=== PATIENT | male | born 1980 | race Caucasian/White ===

== ENCOUNTER 2019-02-22 10:00 | Outpatient (RCR) | payer BC, OTHER, SELFPAY | END 2019-03-12 09:34 | disposition home or self-care (01) | LOC: PT.CARL 10:00 | PROVIDERS: Visit Provider Nurse Practitioner Family | DX: M54.2 Cervicalgia (principal) | CPT/HCPCS: 97010; 97012; 97014; 97035; 97110; 97140; 97163; 97164; G0283 ==

== ENCOUNTER → 2019-04-04 13:07 | Outpatient (CLI) | payer BC, OTHER, SELFPAY ==
[2019-04-07 22:52] LABS: Testosterone, Total, LC/MS 137.7 ng/dL (264.0-916.0); Testosterone,Free 2.4 pg/mL (8.7-25.1)
== END ==
PROVIDERS: Visit Provider Urology
DX: Z87.718 Personal history of other specified (corrected) congenital malformations of genitourinary system (principal)
CPT/HCPCS: 36415; 84402; 84403

== ENCOUNTER → 2019-05-15 08:29 | Outpatient (CLI) | payer BC, SELFPAY ==
--- NOTE | 2019-05-15 08:32 | MR_ITS ---
PROCEDURE: MR HEAD/BRAIN WO CON CLINICAL INDICATION: confusion FRONTAL HEADACHE, LOW TESTOSTERONE, ELEVATED TSH, DIZZINESS COMPARISON: No exams were available for comparison TECHNIQUE: Routine multiplanar multi echo sequences are performed without gadolinium enhancement. FINDINGS: No midline shift, mass effect, intracranial hemorrhage, or hydrocephalus is evident. The cerebellopontine angles, cerebellum, and brainstem have an unremarkable appearance. There are a few nonspecific T2 white matter hyperintensities in the left gonzalez radiata and centrum semiovale. These are nonspecific. The hippocampal gyri and temporal horns are unremarkable. The pituitary, optic chiasm, corpus callosum, and craniocervical junction are unremarkable. There is moderate to severe opacification of the ethmoid sinuses. No mastoid effusion. IMPRESSION: No acute intracranial findings There are few nonspecific white matter hyperintensities in the left gonzalez radiata and centrum semiovale. These could be due to small gliotic foci from microvascular changes or migraine headache. Demyelinating process is felt to be less likely due to the imaging characteristics but not completely excluded. Ethmoid sinus inflammatory changes Dictated by: Mynor Moss MD 05/16/2019 08:28 Signed by: <Electronically signed by Mynor Moss MD in OV> 05/16/2019 08:28
== END ==
PROVIDERS: PCP Physician Assistant; Visit Provider Emergency Medicine
DX: R41.0 Disorientation, unspecified (principal); R41.82 Altered mental status, unspecified
CPT/HCPCS: 70551

== ENCOUNTER → 2019-05-29 14:13 | Outpatient (CLI) | payer BC, SELFPAY ==
--- NOTE | 2019-05-29 14:15 | CA_ITS ---
APPROVED REPORT EXAM: Comprehensive 2D, Doppler, and color-flow Echocardiogram Tower Supervisor: Christine Etienne RDCS Ht: 5 ft 9 in Wt: 168lbs BSA: 1.92 BP: 162/92 mmHg Indications: Chest Pain, Murmur, Palpitations, Hypertension/HDD,Smoker 2D Dimensions LVOT 2.00 cm (M/F) 1.5-2.5 M-Mode Dimensions RVDd 1.60 cm (0.9-2.6) LA Diam 3.10 cm (1.9-4.0) LVDd 4.70 cm (3.5-5.7) Ao Diam 2.80 cm (2.0-3.7) LVDs 3.10 cm (3.5-5.7) AV Cusp 1.70 cm (1.5-2.6) IVSd 1.00 cm (0.6-1.1) PWd 1.10 cm (0.6-1.1) EF (Teich) 62.80% FS 34.00% EDV (Teich) 102.00 mL ESV (Teich) 37.90 mL LV Diastology E/A Ratio 1.2 MED E' 13.10 (< 7 cm/sec) E'/MED E' Ratio 6.00 (>14) LAT E' 19.80 (<10 cm/sec) E/LAT E' Ratio 4.00 (>14) Aortic Valve AoV Peak Eliseo. 148.00 (50-130 cm/s) AO Peak GR. 9.00 mmHg Mitral Valve MV E Max Eliseo. 78.50 (40-130 cm/s) MV A Velocity 68.10 (40-130 cm/s) E/A Ratio 1.20 Pulmonary Valve PA Accel Time 194.00 (>120 msec) Tricuspid Valve TR P. Velocity 252.00 cm/s Left Ventricle Left atrium is normal size, left ventricle is normal size, there is no concentric left ventricular hypertrophy, visually estimated ejection fraction 55% with no regional wall motion abnormality. Diastolic parameters are within normal range. Right Ventricle Right atrium and right ventricular normal size and contractility. Aortic Valve Aortic valve is grossly normal, there is no aortic stenosis aortic insufficiency. Mitral Valve Mitral valve is grossly normal, there is no mitral stenosis, there is mild mitral regurgitation. Tricuspid Valve Cuspid valve is grossly normal, there is no tricuspid stenosis, there is mild tricuspid regurgitation. Pulmonic Valve Pulmonic valve is poorly visualized. Great Vessels Aortic root is normal size. Pericardium No Significant pericardial effusion noted. Conclusion 1. Normal left ventricular size, preserved left ventricular systolic function, visually estimated ejection fraction 55% with no regional wall motion abnormality, diastolic parameters are within normal range. 2. Mild mitral and tricuspid regurgitation 3. No significant pericardial effusion noted. Electronically signed by : Anson Nichols, 05/31/2019 17:16:01 GÉNESIS
== END ==
PROVIDERS: PCP Emergency Medicine; Visit Provider Emergency Medicine
DX: R01.1 Cardiac murmur, unspecified (principal)
CPT/HCPCS: 93306

== ENCOUNTER → 2019-05-30 20:12 | Outpatient (CLI) | payer BC, SELFPAY | PROVIDERS: PCP Emergency Medicine; Visit Provider Physician Assistant | DX: G47.30 Sleep apnea, unspecified (principal); R40.0 Somnolence; R41.0 Disorientation, unspecified | CPT/HCPCS: 95810 ==

== ENCOUNTER → 2019-06-07 15:28 | Outpatient (CLI) | payer BC, SELFPAY | PROVIDERS: PCP Emergency Medicine; Visit Provider Emergency Medicine | DX: R41.82 Altered mental status, unspecified (principal); G47.19 Other hypersomnia | CPT/HCPCS: 93225; 93226 ==

== ENCOUNTER → 2019-06-11 07:47 | Outpatient (CLI) | payer BC, SELFPAY ==
--- NOTE | 2019-06-11 | CA_ITS ---
APPROVED REPORT Exam: Exercise Treadmill Technologist: Alba Elizabeth, Ht: 5 ft 9 in Wt: 170 lbs BSA: 1.93 m2 HR: 89 bpm BP: 141/76 mmHg Indications: Chest pain Medical History Medications: None,,,,, Stress Test Details Test: Keny HR Resting HR: 92 bpm Max Heart Rate (APMHR): 184 bpm Max HR Achieved: 180 bpm Target HR (85% APMHR): 156 bpm % of APMHR: 97 Recovery HR: 107 bpm BP Resting BP: 141/76 mmHg Max BP: 204/85 mmHg Recovery BP: 142.0/83.0 mmHg ECG Clinical Exercise duration: 11:02 min Highest Stage Achieved: Exercise capacity: 12.8 METs Stress ECG Conclusion Resting ECG: Normal sinus rhythm, ST-T abnormality in leads III and aVF Patient exercised 11:02 on Keny Protocol Symptoms: No chest pain Arrhythmias/Ectopy: Rare PAC ST-T Changes: Allowing for motion artifact, the ST response to exercise appears to be within normal range. In late recovery, there is mild exaggeration of baseline ST-T abnormalities in leads III and aVF. Conclusion: Normal exercise treadmill stress test. Test Summary REST . . . . . . . Sitting REST . . . . . . . Standing REST 04:55 0.0 0.0 92 . 141/ 76 . . Stage 1 01:00 10.0 1.7 112 . . . . Stage 1 02:00 10.0 1.7 109 . . . . Stage 1 03:00 10.0 1.7 115 . 162/ 80 . . Stage 2 01:00 12.0 2.5 122 . . . . Stage 2 02:00 12.0 2.5 125 . . . . Stage 2 03:00 12.0 2.5 130 . 166/ 75 . . Stage 3 01:00 14.0 3.4 145 . . . . Stage 3 02:00 14.0 3.4 147 . . . . Stage 3 03:00 14.0 3.4 154 . 186/ 72 . . Stage 4 01:00 16.0 4.2 171 . . . . Stage 4 . . . . . . . Shortness of Breath Stage 4 02:00 16.0 4.2 180 . . . . Stage 4 02:02 16.0 4.2 180 . . . Stop exercise at 11:02 RECOVERY 01:00 0.0 0.0 144 . . . . RECOVERY 02:00 0.0 0.0 119 . 204/ 85 . . RECOVERY 03:00 0.0 0.0 108 . 187/ 88 . . RECOVERY 04:00 0.0 0.0 108 . 158/ 81 . . RECOVERY 05:00 0.0 0.0 102 . 142/ 83 . . RECOVERY 05:26 0.0 0.0 108 . 142/ 83 . . Electronically signed by : Anson Nichols, 06/11/2019 20:25:04
== END ==
PROVIDERS: PCP Emergency Medicine; Visit Provider Urology
DX: R07.9 Chest pain, unspecified (principal); R07.89 Other chest pain; R06.09 Other forms of dyspnea; D50.9 Iron deficiency anemia, unspecified; F17.200 Nicotine dependence, unspecified, uncomplicated
CPT/HCPCS: 93017

== ENCOUNTER → 2019-06-20 12:16 | Outpatient (CLI) | payer BC, SELFPAY ==
[2019-06-25 07:02] LABS: Testosterone, Total, LC/MS 182.1 ng/dL (264.0-916.0); Testosterone,Free 2.7 pg/mL (8.7-25.1)
== END ==
PROVIDERS: Visit Provider Urology
DX: E29.1 Testicular hypofunction (principal)
CPT/HCPCS: 36415; 84402; 84403

== ENCOUNTER → 2019-06-26 13:28 | Outpatient (CLI) | payer BC, SELFPAY ==
[2019-06-26 14:53] LABS: Basophils # 0.1 K/mm3 (0-0.2); Basophils % 0.8 % (0.1-2.0); Eosinophils # 0.3 K/mm3 (0.0-0.4); Eosinophils % 5.6 % (0.1-12.0); Hematocrit 45.6 % (42.0-52.0); Hemoglobin 13.7 g/dL (14.1-18.0); Lymphocytes # 1.9 K/mm3 (0.7-4.5); Lymphocytes % 30.9 % (10-50); Mean Corpuscular HGB Conc 30.1 g/dL (31.8-35.4); Mean Corpuscular Hemoglobin 28.4 pg (27.0-31.2); Mean Corpuscular Volume 94.4 fl (80-94); Mean Platelet Volume 8.8 fl (7.4-10.4); Monocytes # 0.4 K/mm3 (0.1-1.0); Monocytes % 5.7 % (1.7-9.3); Neutrophils # 3.5 K/mm3 (1.8-7.8); Platelet Count 294 K/mm3 (142-424); Red Blood Count 4.83 M/mm3 (4.60-6.20); Red Cell Distribution Width 13.7 % (11.5-17.5); White Blood Count 6.1 K/mm3 (4.8-10.8)
[2019-06-26 16:52] LABS: Alanine Aminotransferase 21 U/L (12-78); Albumin Level 4.2 gm/dL (3.4-5.0); Albumin/Globulin Ratio 1.5 (1.1-1.8); Alkaline Phosphatase 67 U/L (46-116); Anion Gap 14.3 mEq/L (5-15); Aspartate Amino Transferase 24 U/L (15-37); Bilirubin,Total 0.3 mg/dL (0.2-1.0); Blood Urea Nitrogen 18 mg/dL (7-18); Calcium 8.7 mg/dL (8.5-10.1); Carbon Dioxide 28 mmol/L (21.0-32.0); Chloride 104 mmol/L (98-107); Cholesterol 144 mg/dL (140-200); Creatinine,Serum 1.02 mg/dL (0.70-1.30); Estimated Glomerular Filt Rate 83 ml/min (>60); GFR (African American) 100 ML/MIN (>60); Globulin 2.8 gm/dl (1.3-3.2); Glucose 105 mg/dL (74-106); HDL Cholesterol 36 mg/dL (27-67); LDL Cholesterol 89 mg/dL (0-130); Potassium 4.3 mmoL/L (3.5-5.1); Sodium 142 mmol/L (136-145); T4 (Thyroxine) 8.4 ug/dl (4.7-13.3); Thyroid Stimulating Hormone 1.69 uIU/ml (0.358-3.740); Triglycerides 95 mg/dL (30-200); VLDL Cholesterol 19 mg/dL (0-40)
[2019-06-28 09:15] LABS: Iron 57 ug/dL (38-169); UIBC 215 ug/dL (111-343)
[2019-06-28 17:11] LABS: Iron Saturation 21 % (15-55); Vitamin D 25 Hydroxy 66.4 ng/mL (30.0-100.0)
== END ==
PROVIDERS: Visit Provider Physician Assistant
DX: D64.9 Anemia, unspecified (principal); R79.89 Other specified abnormal findings of blood chemistry
CPT/HCPCS: 80053; 80061; 82652; 83540; 83550; 84436; 84443; 85025

== ENCOUNTER 2020-02-05 09:00 | Outpatient (RCR) | payer BC, SELFPAY | END 2020-03-03 15:26 | disposition home or self-care (01) | LOC: PT.CARL 09:00 | PROVIDERS: PCP Physician Assistant; Visit Provider Nurse Practitioner Family | DX: M50.31 Other cervical disc degeneration, high cervical region (principal) | CPT/HCPCS: 97010; 97012; 97014; 97110; 97140; 97163; G0283 ==

== ENCOUNTER 2020-06-08 18:34 | Emergency (ER) | payer BC, SELFPAY ==
[2020-06-08 18:46] VITALS: BP 144/91; PULSE 102; RESP 19; TEMP 36.8; O2SAT 99; BMI 25.8
[2020-06-08 19:21] LABS: Apearance,Urine Clear (Clear); Bilirubin,Urine Negative (Negative); Blood, Urine Negative (Negative); Color,Urine Yellow (Yellow); Glucose,Urine (UA) Negative (Negative); Ketones,Urine Negative (Negative); Protein,Urine Negative (Negative); Specific Gravity, Urine 1.005 (1.005-1.030); UTC Leukocyte Esterase,Urine Negative (Negative); UTC Nitrate,Urine Negative (Negative); Urobilinogen,Urine 0.2 EU/dl (0.2)
--- NOTE | 2020-06-08 19:28 | HMH.EDUTC ---
[facility] [place] Impression: Epididymitis Disposition: Home, Self-Care Condition on Discharge: Good Instructions: Epididymitis, DI for Epididymitis Additional Instructions: Drink plenty of fluids. Take tylenol or ibuprofen for pain or fever. Take the medications as directed. Follow up with your regular doctor. Follow up with urology also. GO TO THE ER FOR ANY WORSENING SYMPTOMS Prescriptions: Sulfamethoxazole/Trimethoprim [Bactrim DS tablet] 1 each PO BID 10 Days #20 tab Transmission Status: Received by [employer] Referrals: Tara Gomes PA [Primary Care Provider] - Forms: Work/School Release Time of Disposition: 19:32 Medical Decision Making - Medical Records Medical records reviewed: No: I reviewed the patient's medical records. - Dario Inquiry Pt receiving controlled substance: No Vital Signs: 06/08/20 18:46 06/08/20 19:33 Temperature 98.2 F 98.2 F Temperature Source Oral Pulse Rate 102 H Pulse Rate [Left Brachial] 102 H Respiratory Rate 19 19 Blood Pressure 144/91 H Blood Pressure [Left Arm] 144/91 H Blood Pressure Mean [Left Arm] 108 Blood Pressure Source [Left Arm] Automatic Cuff Blood Pressure Position [Left Arm] Sitting 02 Sat by Pulse Oximetry 99 Oxygen Delivery Method Room Air - Lab Data Lab results reviewed: Yes: I reviewed the patient's lab results. Lab Results 06/08/20 19:08: Urine Color Yellow, Urine Appearance Clear, Urine pH 6.0, Ur Specific [place] 1.005, Urine Protein Negative, Urine Glucose (UA) Negative, Urine Ketones Negative, Urine Blood Negative, Urine Nitrate Negative, Urine Bilirubin Negative, Urine Urobilinogen 0.2, Ur Leukocyte Esterase Negative [facility] [place] - General Stated complaint: pain in lower Time Seen by Provider: 06/08/20 18:55 Mode of Arrival: Ambulatory Source of Information: Patient Limitations: No Limitations Description of Symptoms (Recalled from Triage Doc. by RN): PATIENT C/O PAIN AND SWELLING TO LEFT TESTICLE SINCE MONDAY. HE REPORTS HE HAS A HISTORY OF EPIDIDYMITIS AND HAS SEEN DR. LEMUS FOR IT HEENT Symptoms (Recalled from RN notes): No Resp Symptoms (Recalled from RN notes): No Skin Symptoms (Recalled from RN notes): No MS Symptoms (Recalled from RN notes): No Functional Status (Recalled from RN notes): WNL - History of Present Illness Provider Complaint: He has had some left testicular discomfort for the past 1 day. He had epidymytis in the past and he thinks that he has it again. He denies any burning while urinating. He denies that the pain is very bad, but it is a nagging pain that he rates as a 2/10 at its worst. He states that it is mostly a tenderness and not actual pain. - Related Data Home Medications Medication Instructions Recorded Confirmed methadone 10 mg/mL oral concentrate 95 mg PO DAILY ml 05/22/19 06/08/20 Previous Rx's Medication Instructions Recorded Sulfamethoxazole/Trimethoprim 1 each PO BID 10 Days #20 tab 06/08/20 [Bactrim DS tablet] Allergies Allergy/AdvReac Type Severity Reaction Status Date / Time doxycycline Allergy Intermediate Verified 06/26/19 10:17 amoxicillin [AMOXICILLIN] Allergy Unknown Verified 06/26/19 10:17 clindamycin [CLINDAMYCIN] Allergy Unknown Verified 06/26/19 10:17 codeine AdvReac Severe Verified 06/26/19 10:17 - Worker's Comp Is this a Worker's Comp case?: No [facility] History - Hepatitis A Screen Drug use history?: No High risk sexual behaviors?: No History of sexually transmitted infection?: No Currently employed?: No Childcare worker?: No Do you have indoor plumbing?: Yes Do you have electricity?: Yes Attestation statement:: This patient has been screened for Hepatitis A risk factors. I have reviewed the patient's past medical history: Yes Medical History: Reports:: Hypertension Denies:: Cancer, Diabetes Mellitus Type 1, Diabetes Mellitus Type 2, MRSA Other Medical History: Reports: Anemia, Fibromyalgia, Hyp
[2020-06-08 19:33] VITALS: BP 144/91; PULSE 102; RESP 19; TEMP 36.8; O2SAT 99
== END 2020-06-08 19:39 | disposition home or self-care (01) ==
PROVIDERS: Emergency Provider Nurse Practitioner Family; PCP Physician Assistant
DX: N45.1 Epididymitis (principal); I10 Essential (primary) hypertension; E03.9 Hypothyroidism, unspecified; M79.7 Fibromyalgia; F17.210 Nicotine dependence, cigarettes, uncomplicated; Z79.899 Other long term (current) drug therapy
CPT/HCPCS: 81003; 99201

== ENCOUNTER → 2020-08-06 18:46 | Outpatient (CLI) | payer BC, SELFPAY ==
[2020-08-06 19:58] LABS: Basophils # 0.1 K/mm3 (0-0.2); Basophils % 0.8 % (0.1-2.0); Eosinophils # 0.2 K/mm3 (0.0-0.4); Eosinophils % 2.8 % (0.1-12.0); Hematocrit 46.2 % (42.0-52.0); Hemoglobin 15.1 g/dL (14.1-18.0); Lymphocytes # 2.5 K/mm3 (0.7-4.5); Lymphocytes % 36.7 % (10-50); Mean Corpuscular HGB Conc 32.6 g/dL (31.8-35.4); Mean Corpuscular Volume 91.8 fl (80-94); Mean Platelet Volume 9.2 fl (7.4-10.4); Monocytes # 0.3 K/mm3 (0.1-1.0); Monocytes % 4.3 % (1.7-9.3); Neutrophils # 3.8 K/mm3 (1.8-7.8); Neutrophils % 55.4 % (37.0-80.0); Platelet Count 314 K/mm3 (142-424); Red Blood Count 5.03 M/mm3 (4.60-6.20); Red Cell Distribution Width 13.7 % (11.5-17.5); White Blood Count 6.9 K/mm3 (4.8-10.8)
[2020-08-06 20:02] LABS: Alanine Aminotransferase 19 U/L (12-78); Albumin Level 4.3 g/dl (3.5-5.0); Albumin/Globulin Ratio 1.7 (1.1-1.8); Alkaline Phosphatase 71 U/L (38-126); Anion Gap 12.8 mEq/L (5-15); Aspartate Amino Transferase 28 U/L (17-59); Bilirubin,Total 0.4 mg/dl (0.2-1.3); Blood Urea Nitrogen 17 mg/dl (9-20); Calcium 9.3 mg/dl (8.4-10.2); Carbon Dioxide 28 mmol/L (22.0-30.0); Chloride 104 mmol/L (98-107); Chol/HDL Ratio 4.4 (1-3.5); Cholesterol 200 mg/dl (140-200); Estimated Glomerular Filt Rate 84 ml/min (>60); GFR (African American) 102 ML/MIN (>60); Globulin 2.6 g/dL (1.3-3.2); Glucose 139 mg/dl (74-100); HDL Cholesterol 45 mg/dl (40-60); Potassium 4.8 mmoL/L (3.5-5.1); Sodium 140 mmol/L (136-145); Total Protein,Serum 6.9 g/dl (6.3-8.2); Triglycerides 134 mg/dl (30-150); VLDL Cholesterol 27 mg/dL (0-40)
[2020-08-06 20:19] LABS: 25-OH Vitamin D, Total 32.7 ng/mL (30-100)
== END ==
PROVIDERS: Visit Provider Physician Assistant
DX: D50.9 Iron deficiency anemia, unspecified (principal); E03.9 Hypothyroidism, unspecified; E55.9 Vitamin D deficiency, unspecified
CPT/HCPCS: 80053; 80061; 82306; 84443; 85025

== ENCOUNTER 2021-12-13 09:00 | Outpatient (RCR) | payer BC, SELFPAY | END 2022-01-18 09:01 | disposition home or self-care (01) | LOC: PT.CARL 09:00 | PROVIDERS: PCP Physician Assistant; Visit Provider Nurse Practitioner Family | DX: M54.2 Cervicalgia (principal) | CPT/HCPCS: 20560; 97010; 97014; 97110; 97140; 97163; G0283 ==

== ENCOUNTER 2022-07-03 15:36 | Emergency (ER) | payer BC, SELFPAY ==
[2022-07-03 16:06] VITALS: BP 136/101; PULSE 114; RESP 20; TEMP 37.2; O2SAT 100; BMI 21.5
--- NOTE | 2022-07-03 16:11 | EXP.UTC ---
Discharge Plan Disposition Patient Disposition: Home, Self-Care Condition: Good Prescriptions Prescriptions: New azithromycin [Zithromax] 250 mg tablet 250 mg PO UD DOSE PK Qty: 6 0RF Rx Instructions: Take two (2) tablets today, then one (1) tablet days #2 thru #5 No Action methadone 10 mg/mL concentrate 90 mg PO DAILY hydrocortisone [Anusol-HC] 2.5 % cream with perineal applicator 1 applic IA QD-BID PRN (Reason: hemorrhoids) Qty: 30 0RF levothyroxine [Synthroid] 25 mcg tablet See Rx Instructions .ROUTE .COMPLEX Qty: 90 2RF Dose Instruction: TAKE 1 TABLET 1 TIME EACH DAY Rx Instructions: TAKE 1 TABLET 1 TIME EACH DAY Referrals Follow up/Referrals: Debra Strong [Primary Care Provider] - See instructions Activity Restrictions/Add. Instructions Additional Instructions/Restrictions: Drink plenty of fluids. Take tylenol or ibuprofen for pain or fever. Take the medications as directed. Follow up with your regular doctor. GO TO THE ER FOR ANY WORSENING SYMPTOMS Please call your dentist and get an appointment to follow up there. Clinical Impressions Clinical Impression: Abscess, dental, Jaw pain Instructions Patient Instructions: Tooth Abscess Discharge ED Provider: Darian Silva [facility] General Stated complaint: SWELLING IN JAW Mode of Arrival: Ambulatory Source of Information: Patient Limitations: No Limitations Time Seen by Provider: 07/03/22 16:11 Description of Symptoms (Recalled from Triage Doc. by RN): pt comes in with c/o left jaw pain. symptoms began last night. pt states that he does have tmjd and a broken tooth in the back HEENT Symptoms (Recalled from RN notes): Yes Resp Symptoms (Recalled from RN notes): No Skin Symptoms (Recalled from RN notes): No MS Symptoms (Recalled from RN notes): Yes Functional Status (Recalled from RN notes): n/a History of Present Illness Provider Complaint: He c/o left lower jaw dental pain for the past 1 week. Related Data Home Medications Medication Instructions Recorded Confirmed methadone 10 mg/mL oral concentrate 90 mg PO DAILY Pain 08/06/20 05/02/22 Previous Rx's Medication Instructions Recorded hydrocortisone 2.5 % topical cream 1 applic IA QD-BID PRN hemorrhoids 05/07/21 with perineal applicator #30 grams (Anusol-HC) levothyroxine 25 mcg tablet See Rx Instructions .Route 03/16/22 (Synthroid) .COMPLEX #90 tabs azithromycin 250 mg tablet 250 mg PO UD DOSE PK #6 tabs 07/03/22 (Zithromax) Allergies Allergy/AdvReac Type Severity Reaction Status Date / Time doxycycline Allergy Intermediate Verified 07/03/22 16:09 amoxicillin [AMOXICILLIN] Allergy Unknown Verified 07/03/22 16:09 clindamycin [CLINDAMYCIN] Allergy Unknown Verified 07/03/22 16:09 codeine AdvReac Severe Verified 07/03/22 16:09 Worker's Comp Is this a Worker's Comp case?: No PFSH PFSH Medical History Chest pain Dyspnea GERD (gastroesophageal reflux disease) Hypothyroidism Iron deficiency anemia Tobacco dependence syndrome Vitamin D deficiency Social History Smoking Status: Current every day smoker tobacco type: cigarettes packs per day: 1 alcohol intake: never substance use type: former substance user and opiates current occupational status: other Travel in the last 8 weeks: None household members: family housing: house number of children: 3 ROS Obtained: Yes All systems reviewed & no additional complaints except as documented Constitutional Constitutional: Reports chills and Reports fever(s) Eyes Eyes: Denies eye discharge ENT Ears, Nose, Mouth, and Throat: Reports as per HPI Cardiovascular Cardiovascular: Denies chest pain Respiratory Respiratory: Denies chest congestion and Reports cough Gastrointestinal Gastrointestingal: Reports nausea; Denies abdominal pain, constipation, crampi
[2022-07-03 16:58] VITALS: BP 136/101; PULSE 114; RESP 20; TEMP 37.2
== END 2022-07-03 16:59 | disposition home or self-care (01) ==
PROVIDERS: Emergency Provider Nurse Practitioner Family; PCP Nurse Practitioner Family
DX: K04.7 Periapical abscess without sinus (principal)
CPT/HCPCS: 99212; G0463

== ENCOUNTER → 2023-04-19 16:37 | Outpatient (CLI) | payer BC, SELFPAY ==
[2023-04-19 12:31] LABS: Basophils # 0.1 K/mm3 (0-0.2); Basophils % 0.6 % (0.1-2.0); Eosinophils # 0.2 K/mm3 (0.0-0.4); Eosinophils % 2.1 % (0.1-12.0); Hematocrit 46.5 % (42.0-52.0); Hemoglobin 14.6 g/dL (14.1-18.0); Lymphocytes % 36.6 % (10-50); Mean Corpuscular HGB Conc 31.4 g/dL (31.8-35.4); Mean Corpuscular Hemoglobin 28.5 pg (27.0-31.2); Mean Corpuscular Volume 90.6 fl (80-94); Mean Platelet Volume 8.7 fl (7.4-10.4); Monocytes # 0.4 K/mm3 (0.1-1.0); Monocytes % 5.3 % (1.7-9.3); Neutrophils # 4.6 K/mm3 (1.8-7.8); Neutrophils % 55.4 % (37.0-80.0); Platelet Count 277 K/mm3 (142-424); Red Blood Count 5.13 M/mm3 (4.60-6.20); Red Cell Distribution Width 13.7 % (11.5-17.5); White Blood Count 8.3 K/mm3 (4.8-10.8)
[2023-04-19 12:34] LABS: Alanine Aminotransferase 20 U/L (12-78); Albumin/Globulin Ratio 1.8 (1.1-1.8); Alkaline Phosphatase 67 U/L (38-126); Aspartate Amino Transferase 32 U/L (17-59); Bilirubin,Total 0.4 mg/dl (0.2-1.3); Blood Urea Nitrogen 25 mg/dl (9-20); Calcium 9.8 mg/dl (8.4-10.2); Carbon Dioxide 29 mmol/L (22.0-30.0); Chloride 102 mmol/L (98-107); Chol/HDL Ratio 2.6 (1-3.5); Cholesterol 168 mg/dl (140-200); Estimated Glomerular Filt Rate 107 ml/min (>60); GFR (African American) 130 ML/MIN (>60); Globulin 2.8 g/dL (1.3-3.2); Glucose 113 mg/dl (74-100); HDL Cholesterol 65 mg/dl (40-60); Sodium 140 mmol/L (136-145); Total Protein,Serum 7.8 g/dl (6.3-8.2); Triglycerides 78 mg/dl (30-150); VLDL Cholesterol 16 mg/dL (0-40)
[2023-04-19 12:45] LABS: Direct LDL Cholesterol 81.06 mg/dL (100-129)
[2023-04-19 12:50] LABS: 25-OH Vitamin D, Total 43.1 ng/mL (30-100)
[2023-04-19 13:05] LABS: Prostate Specific Ag Screen 0.8 ng/ml (0.0-4.0); Thyroid Stimulating Hormone 2.97 uIU/mL (0.465-4.68)
== END ==
LOC: LAB.DROPOF 16:38
PROVIDERS: PCP Physician Assistant; Visit Provider Physician Assistant
DX: E03.9 Hypothyroidism, unspecified (principal); Z79.899 Other long term (current) drug therapy; Z12.5 Encounter for screening for malignant neoplasm of prostate
CPT/HCPCS: 80053; 80061; 82306; 84443; 85025; G0103

== ENCOUNTER 2023-10-03 16:17 | Outpatient (CLI) | payer BC, SELFPAY ==
[2023-10-03 17:02] LABS: Basophils # 0.1 K/mm3 (0-0.2); Basophils % 0.8 % (0.1-2.0); Eosinophils # 0.2 K/mm3 (0.0-0.4); Eosinophils % 2.7 % (0.1-12.0); Hematocrit 46.4 % (42.0-52.0); Hemoglobin 15.3 g/dL (14.1-18.0); Lymphocytes # 2.8 K/mm3 (0.7-4.5); Lymphocytes % 34.7 % (10-50); Mean Corpuscular HGB Conc 33.1 g/dL (31.8-35.4); Mean Corpuscular Hemoglobin 30.6 pg (27.0-31.2); Mean Corpuscular Volume 92.4 fl (80-94); Mean Platelet Volume 8.6 fl (7.4-10.4); Monocytes # 0.3 K/mm3 (0.1-1.0); Monocytes % 4.3 % (1.7-9.3); Neutrophils # 4.6 K/mm3 (1.8-7.8); Neutrophils % 57.5 % (37.0-80.0); Platelet Count 220 K/mm3 (142-424); Red Blood Count 5.02 M/mm3 (4.60-6.20); Red Cell Distribution Width 13.6 % (11.5-17.5)
[2023-10-03 17:34] LABS: Alanine Aminotransferase 21 U/L (12-78); Albumin Level 4.2 g/dl (3.5-5.0); Albumin/Globulin Ratio 1.7 (1.1-1.8); Alkaline Phosphatase 65 U/L (38-126); Anion Gap 10.3 mEq/L (5-15); Aspartate Amino Transferase 30 U/L (17-59); Bilirubin,Total 0.5 mg/dl (0.2-1.3); Blood Urea Nitrogen 21 mg/dl (9-20); Calcium 8.7 mg/dl (8.4-10.2); Carbon Dioxide 30 mmol/L (22.0-30.0); Chloride 101 mmol/L (98-107); Estimated Glomerular Filt Rate 107 ml/min (>60); GFR (African American) 130 ML/MIN (>60); Globulin 2.5 g/dL (1.3-3.2); Glucose 88 mg/dl (74-100); Potassium 4.3 mmoL/L (3.5-5.1); Sodium 137 mmol/L (136-145); Total Protein,Serum 6.7 g/dl (6.3-8.2)
== END 2023-10-03 23:59 ==
LOC: LAB.DROPOF 16:19
PROVIDERS: PCP Family Medicine; Visit Provider Family Medicine
DX: R53.83 Other fatigue (principal); R61 Generalized hyperhidrosis
CPT/HCPCS: 80053; 85025

== ENCOUNTER 2023-10-04 19:13 | Outpatient (CLI) | payer BC, SELFPAY ==
--- NOTE | 2023-10-04 19:30 | XR_ITS ---
FINAL REPORT CLINICAL HISTORY: night sweats/fatigue COMPARISON: None FINDINGS: Two views of the chest were obtained. The heart size and pulmonary vascularity are within normal limits. The mediastinum is normal. No acute pulmonary abnormality is identified. There is no pneumothorax. The bony thorax is intact. IMPRESSION: No active cardiopulmonary disease. Reviewed, Interpreted and Dictated by Matheus Moreno III, MD Transcribed by Avelina Welsh Authenticated and [facility]
== END 2023-10-04 23:59 ==
LOC: RAD 19:14
PROVIDERS: PCP Family Medicine; Visit Provider Family Medicine
DX: R61 Generalized hyperhidrosis (principal); R53.83 Other fatigue
CPT/HCPCS: 71046

== ENCOUNTER 2024-02-26 15:30 | Emergency (ER) | payer BC, SELFPAY ==
[2024-02-26 16:35] VITALS: BP 147/77; PULSE 63; RESP 20; TEMP 37; O2SAT 100; BMI 21.8
--- NOTE | 2024-02-26 16:38 | ED_ITS ---
Discharge Plan Disposition Patient Disposition: Home, Self-Care Condition: Good Prescriptions Prescriptions: New ibuprofen 800 mg tablet 800 mg PO TID PRN (Reason: pain) Qty: 30 0RF cyclobenzaprine 5 mg tablet 5 mg PO TID PRN (Reason: muscle spasm) Qty: 30 0RF No Action methadone 10 mg/mL concentrate 18 mg PO DAILY levothyroxine [Synthroid] 25 mcg tablet 25 mcg PO DAILY Rx Instructions: TAKE 1 TABLET 1 TIME EACH DAY Referrals Follow up/Referrals: Tara Gomes PA [Primary Care Provider] - See instructions Activity Restrictions/Add. Instructions Additional Instructions/Restrictions: keep exercise to lower body until completely healed. Clinical Impressions Clinical Impression: Upper back pain on right side Stand Alone Forms Stand Alone Forms: Work/School Release Instructions Patient Instructions: DI for Thoracic Back Pain Discharge ED Provider: Gabbie Reyes [facility] General Stated complaint: back pain Time Seen by Provider: 02/26/24 16:38 History of Present Illness Provider Complaint: Pt reports that he was at the gym working out with [employer] for the first time and states that he felt the muscle spasm in his right upper back. He reports that he feels a big pull when he tries to look down and to the right or turn his head towards the right. Related Data Home Medications Medication Instructions Recorded Confirmed methadone 10 mg/mL oral concentrate 18 mg PO DAILY Pain 10/03/23 02/26/24 levothyroxine 25 mcg tablet 25 mcg PO DAILY 02/26/24 02/26/24 (Synthroid) Previous Rx's Medication Instructions Recorded cyclobenzaprine 5 mg tablet 5 mg PO TID PRN muscle spasm #30 02/26/24 tabs ibuprofen 800 mg tablet 800 mg PO TID PRN pain #30 tabs 02/26/24 Allergies Allergy/AdvReac Type Severity Reaction Status Date / Time doxycycline Allergy Intermediate Verified 01/22/24 09:15 amoxicillin [AMOXICILLIN] Allergy Unknown Verified 01/22/24 09:15 clindamycin [CLINDAMYCIN] Allergy Unknown Verified 01/22/24 09:15 codeine AdvReac Severe Verified 01/22/24 09:15 [facility] Disclaimer: The information contained in this section may have been updated after the patient was seen, as this information can be updated by other users. Medical History Vitamin D deficiency Iron deficiency anemia Hypothyroidism GERD (gastroesophageal reflux disease) Tobacco dependence syndrome Chest pain Dyspnea Surgical History H/O hernia repair Family History Father Cancer Social History Smoking Status: Current every day smoker tobacco type: cigarettes packs per day: 1 alcohol intake: never substance use type: former substance user and opiates current occupational status: other Travel in the last 8 weeks: None household members: family housing: house number of children: 3 ROS Obtained: Yes All systems reviewed & no additional complaints except as documented Constitutional Constitutional: Reports system reviewed and no additional complaints, except as documented Eyes Eyes: Reports system reviewed and no additional complaints, except as documented ENT Ears, Nose, Mouth, and Throat: Reports system reviewed and no additional complaints, except as documented Cardiovascular Cardiovascular: Reports system reviewed and no additional complaints, except as documented Respiratory Respiratory: Reports system reviewed and no additional complaints, except as documented Gastrointestinal Gastrointestingal: Reports system reviewed and no additional complaints, except as documented Genitourinary Male Genitourinary: Reports system reviewed and no additional complaints, except as documented Musculoskeletal Musculoskeletal: Reports system reviewed and no additional complaints, except as documented, Reports back pain and Reports myalgias Integumentary/Breasts Skin/Breast: Reports system reviewed and no additional complaints, except as documented Neurologic Neurologic: Reports system reviewed and no additional complaints, except as documented Endocrine Endocrine: Reports system reviewed and no additional complaints, except as documented Hematologic/Lymphatic Henatologic/Lymphatic: Reports system reviewed and no additional complaints, except as documented Allergic/Immunologic Allergic/Immunologic: Reports system reviewed and no additional complaints, except as documented Physical Exam General General appearance: alert Comment: appears in pain Head Head exam: atraumatic and normocephalic Eye Eye exam: Present normal appearance ENT ENT exam: Present normal exam Neck Neck exam: Present normal inspection Chest Chest inspection: Present normal inspection and symmetric chest wall rise Respiratory Respiratory exam: Present normal lung sounds bilaterally Cardiovascular Cardiovascular exam: Present regular rate and normal rhythm Abdominal Exam Abdominal exam: Present soft Extremities Exam Extremities exam: Present normal inspection Back Exam Back exam: Present muscle spasm Back 1 view image: 2 1. muscle pain on palpitation. muscle spasm noted Neurological Exam Neurological exam: Present alert and oriented X3 Psychiatric Psychiatric exam: Present normal affect and normal mood Skin Skin exam: Present warm, dry and intact Lymphatic Lymphatic Findings: no adenopathy Medical Decision Making Dario Inquiry Pt receiving controlled substance: No
[2024-02-26] MEDS: DEXAMETHASONE 4MG/ML 1ML VIAL 4 MG IM (17:05)
[2024-02-26] MEDS: KETOROLAC 30MG/ML VIAL 30 MG IM (17:05)
[2024-02-26 17:14] VITALS: BP 147/77; PULSE 63; RESP 20; TEMP 37; O2SAT 100
== END 2024-02-26 17:21 | disposition home or self-care (01) ==
PROVIDERS: Emergency Provider Nurse Practitioner Family; PCP Physician Assistant
DX: M54.6 Pain in thoracic spine (principal); M62.830 Muscle spasm of back; X50.0XXA Overexertion from strenuous movement or load, initial encounter
CPT/HCPCS: 96372; 99212; 99214; G0463

== ENCOUNTER 2024-03-06 12:29 | Outpatient (CLI) | payer BC, SELFPAY ==
--- NOTE | 2024-03-06 12:32 | XR_ITS ---
FINAL REPORT CLINICAL HISTORY: Rt SHoulder pain..lifitng a sand bags FINDINGS: Right shoulder Four views were obtained. There is no acute fracture or dislocation. The joint spaces appear normal. No soft tissue abnormality is identified. IMPRESSION: No acute process. Reviewed, Interpreted and Dictated by Matheus Moreno III, MD Transcribed by Drea Soliman Authenticated and [facility]
== END 2024-03-06 23:59 | disposition home or self-care (01) ==
LOC: RAD 12:30
PROVIDERS: PCP Physician Assistant; Visit Provider Physician Assistant
DX: M25.511 Pain in right shoulder (principal)
CPT/HCPCS: 73030

== ENCOUNTER 2024-06-28 10:36 | Outpatient (CLI) | payer BC, SELFPAY ==
[2024-06-28 18:01] LABS: Thyroid Stimulating Hormone 2.56 uIU/mL (0.465-4.68)
== END 2024-06-28 23:59 | disposition home or self-care (01) ==
LOC: LAB.DROPOF 07-01 10:36
PROVIDERS: PCP Family Medicine; Visit Provider Family Medicine
DX: E03.9 Hypothyroidism, unspecified (principal)
CPT/HCPCS: 84443

== ENCOUNTER 2025-01-03 11:58 | Outpatient (CLI) | payer BC, SELFPAY ==
[2025-01-03 16:25] LABS: Basophils % 0.6 % (0.1-2.0); Eosinophils # 0.1 K/mm3 (0.0-0.4); Eosinophils % 1.4 % (0.1-12.0); Hematocrit 48.8 % (42.0-52.0); Hemoglobin 16.2 g/dL (14.1-18.0); Lymphocytes # 2.4 K/mm3 (0.7-4.5); Lymphocytes % 32.7 % (10-50); Mean Corpuscular HGB Conc 33.2 g/dL (31.8-35.4); Mean Corpuscular Hemoglobin 30.2 pg (27.0-31.2); Mean Platelet Volume 10.4 fl (7.4-10.4); Monocytes # 0.3 K/mm3 (0.1-1.0); Monocytes % 4.7 % (1.7-9.3); Neutrophils # 4.4 K/mm3 (1.8-7.8); Neutrophils % 60.6 % (37.0-80.0); Nucleated Red Blood Cells # 0 10^3/uL; Nucleated Red Blood Cells % 0 %; Platelet Count 234 K/mm3 (142-424); Red Blood Count 5.36 M/mm3 (4.60-6.20); Red Cell Distribution Width 13.2 % (11.5-17.5); Red Cell Distribution Width-SD 44.2 fL; White Blood Count 7.2 K/mm3 (4.8-10.8)
[2025-01-03 17:06] LABS: Alanine Aminotransferase 18 U/L (12-78); Albumin Level 4.6 g/dl (3.5-5.0); Albumin/Globulin Ratio 1.5 (1.1-1.8); Alkaline Phosphatase 75 U/L (38-126); Anion Gap 18.9 mEq/L (5-15); Aspartate Amino Transferase 30 U/L (17-59); Bilirubin,Total 1.1 mg/dl (0.2-1.3); Blood Urea Nitrogen 25 mg/dl (9-20); Calcium 9.1 mg/dl (8.4-10.2); Carbon Dioxide 27 mmol/L (22.0-30.0); Chloride 99 mmol/L (98-107); Chol/HDL Ratio 3.4 (1-3.5); Cholesterol 214 mg/dl (140-200); Estimated Glomerular Filt Rate 82 ml/min (>60); GFR (African American) 99 ML/MIN (>60); Globulin 3.1 g/dL (1.3-3.2); Glucose 73 mg/dl (74-100); HDL Cholesterol 63 mg/dl (40-60); Potassium 4.9 mmoL/L (3.5-5.1); Sodium 140 mmol/L (136-145); Total Protein,Serum 7.7 g/dl (6.3-8.2); Triglycerides 55 mg/dl (30-150); VLDL Cholesterol 11 mg/dL (0-40)
[2025-01-03 17:17] LABS: Direct LDL Cholesterol 119.99 mg/dL (100-129)
[2025-01-03 17:36] LABS: Thyroid Stimulating Hormone 0.85 uIU/mL (0.465-4.68)
[2025-01-03 17:39] LABS: 25-OH Vitamin D, Total > 126 ng/mL (30-100)
[2025-01-03 17:53] LABS: Hepatitis C Ab Qual. W/ RFX NEGATIVE (Negative)
[2025-01-03 19:27] LABS: HIV Combo NEGATIVE (Negative)
== END 2025-01-03 23:59 | disposition home or self-care (01) ==
LOC: LAB.DROPOF 01-05 11:59
PROVIDERS: PCP Nurse Practitioner Family; Visit Provider Nurse Practitioner Family
DX: E03.9 Hypothyroidism, unspecified (principal); E55.9 Vitamin D deficiency, unspecified
CPT/HCPCS: 80053; 80061; 82306; 84443; 85025; 86803; 87389

== ENCOUNTER 2025-04-09 15:11 | Outpatient (CLI) | payer BC, SELFPAY ==
--- OUTSIDE RECORDS SUMMARY | 2025-04-09 15:13 | XMS_ITS | Clinical Summary ---
Author Organization Healthcare Address [address] [place] [address] Care Team Providers Care Cisco Consultant Name Role Phone Pcp, No Primary Care Provider Unavailabl e Allergies Active Allergy Reactions Criticality Noted Date Comments Amoxicillin Other - please docum ent in the comment field Low 07/08/2022 Clindamycin Unknown - Patient st ates they do not know rxn details Low 07/08/2022 Codeine Unknown - Patient st ates they do not know rxn details Low 07/08/2022 Doxycycline Unknown - Patient st ates they do not know rxn details Low 07/08/2022 Medications levothyroxine (Synthroid, Levoxyl) 100 MCG tablet Take 100 mcg by mouth 1 (one) time each day in the morning. Active methadone (Dolophine) 10 MG/5ML solution Acti ve Multiple Vitamin (multivitamin) capsule Take 1 capsule by mouth 1 (one) time each day. Active Social History Tobacco Use Types Packs/Day Years Used Date Smoking Tobacco: Every Day Cigarettes Tobacco Cessation:Ready to Q uit: Not Asked; Counseling Given: Not Answered Alcohol Use Standard Drinks/Week Comments Never 0 (1 standard drink = 0.6 oz pur e alcohol) Sex and Gender Information Value Date Recorded Sex Assigned at Not on file Legal Sex Male 8:03 PM EDT Gender Identity Not on file Sexual Orientation Not on file Last Filed Vital Signs Vital Sign Reading Time Taken Comments Blood Pressure 140/90 07/20/2022 3:00 PM EDT Pulse 100 07/20/2022 3:00 PM EDT Temperature - - Respiratory Rate - - Oxygen Saturation - - Inhaled Oxygen Concentration - - Weight - - Height - - Body Mass Index - - Plan of Treatment Health Maintenance Due Date Last Done Comments Dental Oral Exam 1982 Dental Prophylaxis 1982 Dental X-Ray: Bitewings 1982 [facility]-Depression Screening 1982 [facility]-HIV Screening 1982 [facility]-Hepatitis C Screening 1982 [facility]-Infant/Child/Adol SDOH Screenings 1982 [facility]-Varicella Vaccines (1 of 2 - 13+ 2-dose series) 1995 HPV Vaccines (1 - Male 3-dose series) 1997 [facility]- SDOH Screenings 2000 [facility]-Adult SDOH Screenings 2000 [facility]-Hepatitis B Vaccines (1 of 3 - 19+ 3-dose series) 2001 [id number] Vaccine (3 - Pfizer risk series) 09/19/2021 08/22/2021, 07/19/2021 [facility]-Influenza Vaccine (#1) 2025 06/25/2020 Dental X-Ray: Full Mouth 07/09/2025 07/08/2022 [facility]-DTaP,Tdap,and Td Vaccines (2 - Td or Tdap) 02/04/2026 02/05/2016 [facility]-Zoster Vaccines (1 of 2) 2032 [facility]-HIB Vaccines Aged Out No longer e ligible based on patient's age to complete this topic [facility]-Hepatitis A Vaccines Aged Out No longer eligible based on patient's age to complete this topic [facility]-IPV Vaccines Aged Out No longer e ligible based on patient's age to complete this topic [facility]-Pneumococcal Vaccine: Pediatrics (0 to 5 Years) and At-Risk Patients (6 to 49 Years) Aged Out No longer eligible b ased on patient's age to complete this topic [facility]-Rotavirus Vaccines Aged Out No lo nger eligible based on patient's age to complete this topic Procedures Procedure Name Priority Date/Time Associated Diagnosis Comments PANORAMIC RADIOGRAPHIC IMAGE Routine 07/08/2022 9:00 AM EDT Dental caries from Last 3 Months or Most Recently Relevant to Health Maintenance Insurance Care Teams Cisco Consultant Relationship Specialty Start Date End Date Pcp, Arpita [address] [place] [address] PCP - General Family Medicine 07/08/22
--- NOTE | 2025-04-09 15:30 | US_ITS ---
FINAL REPORT TECHNIQUE: Ultrasound images of the testicles were obtained bilaterally. Color Doppler images were obtained. CLINICAL HISTORY: Testicular pain COMPARISON: None FINDINGS: SCROTAL ULTRASOUND The left testis has a homogeneous architecture. No masses are seen. Normal flow is demonstrated by Doppler exam. No significant fluid collections are present. The right testis is partially undistended and mildly atrophic. The right testis is located in the lower right inguinal canal/upper scrotum. The epididymal structures are unremarkable. IMPRESSION: No acute findings. Partially undistended right testis with atrophy. Reviewed, Interpreted and Dictated by Sadaf Naylor MD Transcribed by Serena Rocha Authenticated and [facility]
== END 2025-04-09 23:59 | disposition home or self-care (01) ==
LOC: RAD 15:12
PROVIDERS: PCP Nurse Practitioner Family; Visit Provider Urology
DX: N50.0 Atrophy of testis (principal); N40.0 Benign prostatic hyperplasia without lower urinary tract symptoms; N50.819 Testicular pain, unspecified
CPT/HCPCS: 76870

== ENCOUNTER 2025-04-17 07:20 | Outpatient (CLI) | payer BC, SELFPAY ==
--- OUTSIDE RECORDS SUMMARY | 2025-04-17 07:23 | XMS_ITS | Clinical Summary ---
Author Organization Healthcare Address [address] [place] [address] Care Team Providers Care Outbound Telemarketing Representative Name Role Phone Pcp, No Primary Care [...] of 3 - 19+ 3-dose series) 2001 [id number] Vaccine (3 - Pfizer risk series) 09/19/2021 [...] Relevant to Health Maintenance Insurance Care Teams Outbound Telemarketing Representative Relationship Specialty Start Date End Date Pcp, Arpita [address] [place] [address] PCP - General Family Medicine 07/08/22
[2025-04-17 08:48] LABS: Prostate Specific Ag, Diagnost 1.05 ng/ml (0.0-4.0)
[2025-04-18 08:14] LABS: Testosterone,Total 598 ng/dL (264-916)
== END 2025-04-17 23:59 | disposition home or self-care (01) ==
LOC: LAB 07:21
PROVIDERS: PCP Family Medicine; Visit Provider Urology
DX: N40.0 Benign prostatic hyperplasia without lower urinary tract symptoms (principal); N50.819 Testicular pain, unspecified
CPT/HCPCS: 36415; 84153; 84270; 84403